=== PATIENT | male | born 1975 | race Caucasian/White ===

== ENCOUNTER → 2016-06-02 | Outpatient (CLI) | payer BC | LOC: KOH-I 11:21 | DX: M25.511 Pain in right shoulder (principal) | CPT/HCPCS: 73030 ==

== ENCOUNTER 2021-03-03 06:57 | Emergency (ER) | payer OTHER ==
[~2021-03-03 06:57] MED LIST: HYDROCODON-ACE1 EAC2 PO; ZOFRAN ODT 4 MG4 MG SL
[2021-03-03] MEDS ORDERED: DECADRON4 MG PO (09:49)
[2021-03-03] MEDS ORDERED: PROAIR HFA8.5 GM INH (09:49)
[2021-03-03] MEDS ORDERED: ZOFRAN ODT 4 MG4 MG SL (09:49)
== END 2021-03-03 10:10 | disposition home or self-care (01) ==
LOC: ER1 06:57
DX: U07.1 COVID-19 (principal); E11.9 Type 2 diabetes mellitus without complications; I10 Essential (primary) hypertension; Z79.84 Long term (current) use of oral hypoglycemic drugs
CPT/HCPCS: 0240U; 71045; 82962; 87081; 87880; 99283

== ENCOUNTER 2021-04-04 06:57 | Emergency (ER) | payer OTHER ==
[~2021-04-04 06:57] MED LIST changes: +DECADRON4 MG PO; +PROAIR HFA8.5 GM INH
[2021-04-04] MEDS ORDERED: NAPROSYN500 MG PO (09:28)
== END 2021-04-04 09:45 | disposition home or self-care (01) ==
LOC: ER1 06:57
DX: M25.512 Pain in left shoulder (principal)
CPT/HCPCS: 73030; 96372; 99283; J1885

== ENCOUNTER → 2021-05-19 | Outpatient (CLI) | payer OTHER ==
[~2021-05-19] MED LIST changes: +NAPROSYN500 MG PO
== END ==
LOC: KOH-I 09:04
DX: M75.122 Complete rotator cuff tear or rupture of left shoulder, not specified as traumatic (principal)
CPT/HCPCS: 73221

== ENCOUNTER → 2021-06-16 | Outpatient (CLI) | payer OTHER ==
[~2021-06-16] MED LIST changes: +LISINOPRIL20 MG PO
[2021-06-16 09:14] LABS: BUN/CREATININE RATIO 12 (0-10)
== END ==
LOC: OPSV2 06-15 08:00
PROVIDERS: Anesthesiology
DX: Z01.812 Encounter for preprocedural laboratory examination (principal)
CPT/HCPCS: 36415; 80048; 93005

== ENCOUNTER → 2021-06-24 | Day surgery (SDC) | payer OTHER | END | disposition home or self-care (01) | LOC: OR 09:50 | DX: S46.012A Strain of muscle(s) and tendon(s) of the rotator cuff of left shoulder, initial encounter (principal); S43.432A Superior glenoid labrum lesion of left shoulder, initial encounter; M65.812 Other synovitis and tenosynovitis, left shoulder; M75.52 Bursitis of left shoulder; I10 Essential (primary) hypertension; Z79.899 Other long term (current) drug therapy; Y93.02 Activity, running; Y93.39 Activity, other involving climbing, rappelling and jumping off | CPT/HCPCS: C1713; J0171; J0592; J0690; J1100; J1885; J2250; J2370; J2405; J2704; J2710; J2795; J7120 ==